=== PATIENT | male | born 1975 | race Caucasian/White ===

== ENCOUNTER 2018-09-17 12:20 | Day surgery (SDC) | payer BC ==
[~2018-09-17] VITALS: Ht 170.2 cm; Wt 75.1 kg
[2018-09-17] VITALS (15 sets, daily range): BP systolic 109–128; BP diastolic 61–75; PULSE 74–94; RESP 12–20; Ht 170.2 cm; Wt 75.1 kg
[~2018-09-17 12:20] MED LIST: CEFAZOLIN 2 GM/50 ML (PMX) 50 ML IVPB SCH; DEXAMETHASONE 4 MG/ML 5 ML INJ ONE; ONDANSETRON 4 MG INJ ONE; SOD CHLORIDE 0.9% 1,000 ML IV ONE
[2018-09-17] MEDS ORDERED: TAMS-14 PO (12:39)
--- NOTE | 2018-09-17 13:33 | HPN ---
Date/Time of Note Date/Time of Note DATE: 09/17/18 TIME: 13:32 Interval H&P Admission Note Pt. seen H&P reviewed: No system changes ALETA BANUELOS MD September 17, 2018 13:32
[2018-09-17] MEDS ORDERED: BUPIVACAINE 0.25%/EPI (SDV) 30 ML INJ ONE (13:38)
--- NOTE | 2018-09-17 13:42 | PREAC ---
Date/Time of Note Date/Time of Note DATE: 09/17/18 TIME: 13:39 Anesthesia Eval and Record Evaluation Time Pre-Procedure Interview DATE: 09/17/18 TIME: 13:39 Age 42 Sex male NPO: 8 hrs Preoperative diagnosis inguinal hernia Planned procedure Inguinal hernia repair Past Medical History Past Medical History: None Surgery & Anesthesia Issues No known issue Meds Anticoagulation: No Beta Cas within 24 hr: No Reason Beta Cas not given: Other (notneede) Reported Medications Tamsulosin Hcl* (Flomax*) 0.4 Mg Cap.er.24h, 0.4 MG PO DAILY, CAP 09/17/18 Current Medications Cefazolin Sodium/ Dextrose 50 ml @ 100 mls/hr PRE-OP IVPB ; Start 09/17/18 at 06:00; Stop 09/17/18 at 15:00 Sodium Chloride 1,000 ml @ 75 mls/hr [id number] ONCE IV ; Start 09/17/18 at 06:00; Stop 09/17/18 at 19:19 Meds reviewed: Yes Allergies Coded Allergies: No Known Allergy (Unverified , 09/17/18) Allergies Reviewed: No Labs/Studies Labs Reviewed: Reviewed by anesthesiologist test: N/A Pre-procedure Exam Last vitals Vital Signs Date Temp Pulse Resp B/P (MAP) Pulse Ox O2 O2 Flow FiO2 Time Delivery Rate 09/17/18 97.9 93 18 110/65 97 Room Air 12:47 (80) Airway: Adequate mouth opening Mallampati: Mallampati III Teeth: Normal Lung: Normal Heart: Normal ASA Physical Status ASA physical status: 2 Emergency: None Planned Anesthetic General/MAC: ETT Pre-operative Attestations Prior to commencing anesthesia and surgery, the patient was re-evaluated, there was verification of: *The patient's identity *The results of appropriate recent lab work and preoperative vital signs *The above evaluation not changing prior to induction *Anesthetic plan, risk benefits, alternative and complications discussed with patient/family; questions answered; patient/family understands, accepts and wishes to proceed. ANDREA COLLAZO MD September 17, 2018 13:42
[2018-09-17] MEDS ORDERED: PROPOFOL 20 ML ONE (13:43)
[2018-09-17] MEDS ORDERED: CEFAZOLIN 1 GM INJ ONE (13:43)
[2018-09-17] MEDS ORDERED: MIDAZOLAM 1 MG/ML 2 ML INJ ONE (13:43)
[2018-09-17] MEDS ORDERED: ROCURONIUM 50 MG INJ ONE (13:43)
[2018-09-17] MEDS ORDERED: SUCCINYLCHOLINE CHLORIDE 100 MG/5 ML SYG IV ONE (13:43)
[2018-09-17] MEDS ORDERED: KETOROLAC 30 MG INJ IV PRN ×2 (14:30→15:30)
[2018-09-17] MEDS ORDERED: MEPERIDINE 25 MG INJ IV PRN (14:30)
[2018-09-17] MEDS ORDERED: OXYCODONE/ACETAMINOPHEN (5/325) TAB PO PRN (14:30)
[2018-09-17] MEDS ORDERED: ONDANSETRON 4 MG INJ IV PRN ×2 (14:30→15:30)
[2018-09-17] MEDS ORDERED: GLYCOPYRROLATE 0.4 MG INJ ONE (14:47)
[2018-09-17] MEDS ORDERED: NEOSTIGMINE 3 MG/3 ML SYRINGE ONE (14:47)
--- NOTE | 2018-09-17 15:12 | OPR ---
Date/Time of Note Date/Time of Note DATE: 09/17/18 TIME: 15:05 Operative Report Procedure Date: September 17, 2018 Preoperative Diagnosis Right inguinal hernia Postoperative Diagnosis Right inguinal hernia Operation/Procedure Performed 1. Open right inguinal hernia repair with mesh 2. Cord lipectomy 3. Right ilioinguinal nerve block Surgeon see signature line Post Closing Specialist None Anesthesia Type: general Anesthesiologist: ANDREA COLLAZO MD Estimated Blood Loss: minimal Transfusion none Specimen Lipoma of cord Grafts/Implants Ethicon ultra pro plug and patch size medium Complications none Pt Condition Post Procedure: stable Disposition: PACU Indications The patient is a 42-year-old Citizen Of [place] male who presented to the office complaining of a painful right groin bulge present for at least the past year. He was diagnosed on clinical exam as having a right inguinal hernia. This was confirmed via CT scan. The patient was scheduled for open right inguinal hernia repair with mesh to prevent sequelae of hernia disease which include, but are not limited to: Incarceration and strangulation. All risks and benefits of the procedure including but not limited to: Wound infection, excessive bleeding, postoperative seroma/hematoma formation, nerve injury which may be temporary versus permanent, injury to the reproductive organs including the vas deferens and the testicle which may lead to testicular atrophy, injury to intra-abdominal organs necessitating subsequent operation, hernia recurrence, chronic pain, etc. were all explained to the patient full detail. The patient fully understood and wished to proceed with the procedure. Informed consent was therefore obtained. Procedure Description The patient was brought to the operating room and placed supine on the operating table. Bilateral sequential compression devices were placed on both lower extremities. A dose of broad-spectrum perioperative intravenous antibiotics was given. After the induction of smooth general anesthesia the patient's abdomen and bilateral groins were prepped and draped in standard surgical fashion. After performance of the surgical timeout 0.25% Marcaine with epinephrine was injected over the area of the incision. Incision was then made using a 15 blade scalpel from the right pubic tubercle towards the right anterior superior iliac spine. Incision was carried down through the skin into the subcutaneous tissues using Bovie electrocautery. Viky's fascia was incised and the aponeurosis of the external oblique muscle was reached. The aponeurosis of the external oblique muscle was then incised in the direction of its fibers using a 15 blade scalpel and further opened using Metzenbaum scissors. The ilioinguinal nerve was identified on top of the spermatic cord. It was kept in its anatomical position and preserved throughout the entirety of the procedure. Using blunt dissection the spermatic cord was then mobilized off of the floor of the inguinal canal and encircled using a [place] drain. The cord structures were identified and preserved throughout the entirety of the procedure. A large, direct, fat-containing hernia was identified. There was attenuation of blow out of the floor of the inguinal canal. Cremasteric muscles were incised and dissection of the cord was begun. There was no indirect inguinal hernia sac identified. A moderate sized lipoma of the spermatic cord was identified. It was dissected off the cord, transected at its base, and the stump was ligated with a 3-0 Vicryl suture. The cord lipoma was then passed off the field the specimen. The direct hernia sac was then dissected from surrounding tissues. Dissection was continued towards the neck of the hernia. The sac was then reduced back into the intra-abdominal cavity. The direct hernia defect was then repaired using a medium sized Ethicon ultra pro plug. The plug was sutured in place using interrupted 3-0 Vicryl sutures. An onlay mesh was then used to reconstruct the floor of the inguinal canal. It was secured in place using interrupted 2-0 Novafil sutures. Both the plug and the mesh were soaked in antibiotic irrigation prior to placement in the field. A slit was made in the mesh to accommodate the spermatic cord. With the repair complete it was examined and noted to be hemostatic and tension-free. The wound cavity was then irrigated with more antibiotic containing irrigation. Spermatic cord was then placed back into its anatomical position. The aponeurosis of the external oblique muscle was then reapproximated using a running 3-0 Vicryl suture. Inci angeline was then closed in layers using a running 3-0 Vicryl suture for the Viky's fascia. The skin was then reapproximated using 4-0 Monocryl suture in a running subcuticular fashion. Attention was then turned to the right ilioinguinal nerve block. 10 cc of 0.25% Marcaine with epinephrine was then injected in a radial fashion approximately 2 fingerbreadths medial and inferior to the right anterior superior iliac spine. Further local anesthesia was then injected around the incision site. Incision was cleaned and Dermabond was applied. The patient was awoken from anesthesia and transferred to the recovery room in stable condition. Both testicles were palpated and noted to be in their anatomical positions at the end of the case. All counts were correct at the end of the case 2. ALETA BANUELOS MD September 17, 2018 15:12
[2018-09-17] MEDS: HYDROmorphONE 1 MG/5 ML IV SYRINGE IV PRN ×3 (15:23→15:40)
--- NOTE | 2018-09-17 15:23 | PAC ---
Date/Time of Note Date/Time of Note DATE: 09/17/18 TIME: 15:23 Post-Anesthesia Notes Post-Anesthesia Note Last documented vital signs Vital Signs Date Temp Pulse Resp B/P (MAP) Pulse Ox O2 O2 Flow FiO2 Time Delivery Rate 09/17/18 97.9 93 18 110/65 97 Room Air 12:47 (80) Activity: WNL Respiratory function: WNL Cardiovascular function: WNL Mental status: Baseline Pain reasonably controlled: Yes Hydration appropriate: Yes Nausea/Vomiting absent: Yes ANDREA COLLAZO MD September 17, 2018 15:23
[2018-09-17] MEDS ORDERED: IBUPROFEN 600 MG TAB PO PRN (15:30)
[2018-09-17] MEDS ORDERED: morphine 2 MG INJ IV PRN (15:30)
[2018-09-17] MEDS ORDERED: HYDROCODONE/APAP (5/325) TAB PO PRN ×2 (15:30)
== END 2018-09-17 16:56 | disposition home or self-care (01) ==
LOC: SDS 12:20
PROVIDERS: ATTEND Surgery
DX: K40.90 Unilateral inguinal hernia, without obstruction or gangrene, not specified as recurrent (principal); D17.6 Benign lipomatous neoplasm of spermatic cord
CPT/HCPCS: 49505; 55520; C1781; J0690; J1100; J1170; J1885; J2250; J2405; J2710; J3010; Z7512; Z7610; 88302